=== PATIENT | female | born 1945 | race Caucasian/White ===

== ENCOUNTER 2017-09-19 15:37 | Emergency (ER) | payer MEDICARE, BC ==
[2017-09-19] MEDS ORDERED: Dexamethasone 4 mg/ml Vial ONE (16:07)
== END 2017-09-19 16:17 | disposition home or self-care (01) ==
LOC: BURERS 15:37
DX: J06.9 Acute upper respiratory infection, unspecified (principal); E11.9 Type 2 diabetes mellitus without complications; E78.5 Hyperlipidemia, unspecified; I10 Essential (primary) hypertension; F17.210 Nicotine dependence, cigarettes, uncomplicated; Z79.899 Other long term (current) drug therapy; Z79.82 Long term (current) use of aspirin
CPT/HCPCS: 99406; J1100

== ENCOUNTER 2018-10-22 13:51 | Emergency (ER) | payer MEDICARE, BC ==
[2018-10-22] MEDS ORDERED: predniSONE 20 MG TAB ONE (14:05)
--- NOTE | 2018-10-22 19:40 | RAD ---
CHEST TWO VIEWS: 10/22/18 Comparison is made with the 07/17/05 study. The heart is mildly enlarged. There is no clear congestion of the vessels or pleural effusions. The l ungs are mildly hyperexpanded. There is a little prominence of the basilar markings bilaterally, but is difficult to diagnose a definite pneumonia at this time. Degenerative changes are suggested in the left glenohumeral joint. The trachea is midline. IMPRESSION: 1. Mild cardiomegaly without congestive change. 2. Hyperexpanded lungs with prominence of basilar markings. I cannot tell if this is acute and t herefore potentially related to infection, or if this is more chronic in nature. Serial followup film may be helpful. POS: HOME
== END 2018-10-22 14:43 | disposition home or self-care (01) ==
LOC: BURERS 13:51
DX: J06.9 Acute upper respiratory infection, unspecified (principal); E11.9 Type 2 diabetes mellitus without complications; E78.5 Hyperlipidemia, unspecified; I10 Essential (primary) hypertension; F32.9 Major depressive disorder, single episode, unspecified; F17.210 Nicotine dependence, cigarettes, uncomplicated; Z79.82 Long term (current) use of aspirin; Z79.51 Long term (current) use of inhaled steroids; Z79.899 Other long term (current) drug therapy
CPT/HCPCS: 71046; J7620

== ENCOUNTER 2019-06-14 17:04 | Emergency (ER) | payer MEDICARE, BC ==
[2019-06-14] MEDS ORDERED: Fentanyl 100 MCG/2 ML VIAL ONE (17:37)
[2019-06-14] MEDS ORDERED: Ondansetron PF 4 MG/2 ML Vial ONE (17:38)
--- NOTE | 2019-06-14 17:54 | RAD ---
RADIOGRAPH CHEST 1 VIEW: DATE: 06/14/2019 TIME: 5:37 PM HISTORY: 73-year-old female with cough. COMPARISON: 10/22/2018 FINDINGS: There is increased attenuation at the right lower lung zone without silhouetting of the right hemidia phragm or right cardiac border. This appears worse than on the prior study. It is uncertain whether this is entirely due to body habitus and overlying soft tissues, or whether there is an infiltrate in the right lower lobe. Retrocardiac portion of left lower lobe is also poorly visualized. Upper lung zones are grossly clear. Magnification of the cardiac shadow due to body habitus. No pneumothora x or pulmonary edema. IMPRESSION: Region of increased density at right lower lung zone. Uncertain whether this is an acute infiltrate ( pneumonia) or entirely artifact due to body habitus and overlying soft tissues. Pneumonia is slightly favored. Follow-up is recommended.
[2019-06-14 18:30] LABS: ALT (SGPT) 17 U/L (8-55); AST (SGOT) 20 U/L (5-34); Albumin 4.2 g/dL (3.4-4.8); Alkaline Phosphatase 80 U/L (40-110); Anion Gap 16 mmol/L (10-20); BUN (Urea Nitrogen) 10 mg/dL (9.8-20.1); Bilirubin, Total 1.4 mg/dL (0.2-1.2); Calc. Creatinine Clearance 0 mL/min (70-130); Calcium 9.6 mg/dL (7.8-10.44); Carbon Dioxide 25 mmol/L (23-31); Chloride 99 mmol/L (98-107); Estimated GFR-MDRD 67; Glucose 134 mg/dL (83-110); Lipase 21 U/L (8-78); Potassium 3.8 mmol/L (3.5-5.1); Protein, Total 7.2 g/dL (6.0-8.3); Sodium 136 mmol/L (136-145)
[2019-06-14 18:41] LABS: #Basophils 0.1 thou/uL (0.0-0.2); #Lymphocytes 1.1 thou/uL (1.20-3.40); #Monocytes 0.6 thou/uL (0.11-0.59); #Neutrophils 10.9 thou/uL (1.40-6.50); %Basophils 0.5 % (0.0-1.0); %Lymphocytes 8.9 % (21.0-51.0); %Monocytes 4.7 % (0.0-10.0); %Neutrophils 85.9 % (42.0-75.0); Elliptocytes SLIGHT = 2-5 cells (100X) (0-1/hpf); Hemoglobin 14.9 g/dL (12.0-16.0); Hypochromia MODERATE=16-30 cells (100X) (0-5/hpf); Large Platelets MODERATE; Lymphocytes 8 % (21-51); MDiff Complete? YES; Mean Corpuscular Volume 63.8 fL (78.0-98.0); Mean Platelet Volume 10.8 fL (7.4-10.4); Microcytosis MODERATE=15-30 cells (100X) (0-5/hpf); Monocytes 6 % (0-10); Neutrophil 86 % (42-75); Platelet Count 461 thou/uL (130-400); Polychromasia SLIGHT = 2-3 cells (100X) (0-2/hpf); RBC Distribution Width 19.1 % (11.5-14.5); Red Blood Cell (RBC) Count 8.06 mill/uL (4.20-5.40); Reflex for Review?? YES; White Blood Cell (WBC) Count 12.7 thou/uL (4.8-10.8)
[2019-06-14 18:45] LABS: Mean Corpuscular HGB CONC 29.6 g/dL (32.0-36.0)
[2019-06-14] MEDS ORDERED: cefTRIAXone\\ROCEPHIN 2 GM VIAL ONE (19:17)
[2019-06-14] MEDS ORDERED: Azithromycin 250 MG TAB ONE (19:17)
[2019-06-14 19:38] LABS: Bilirubin Small (Negative); Blood, Urine Negative (Negative); Clarity Cloudy (Clear); Glucose, Urine (Dipstick) Negative (Negative); Leukocyte Trace (Negative); Nitrite Negative (Negative); Protein, Urine (Dipstick) 30 mg/dL (Neg-Trace)
[2019-06-14 19:46] LABS: Bacteria/HPF 1+ HPF (None Seen); Broad Cast None Seen LPF (None Seen); Calcium Oxalate Crystals None Seen HPF (None Seen); Cellular Cast None Seen LPF (None Seen); Epithelial Cast None Seen LPF (None Seen); Fatty Cast None Seen LPF (None Seen); Mucous/LPF None Seen LPF (<2+); Other Casts None Seen LPF (None Seen); Oval Fat Bodies/HPF None Seen HPF (None Seen); RBC/HPF None Seen HPF (0-3); Red Blood Cell Cast None Seen LPF (None Seen); Renal Epithelial None Seen HPF (None Seen); Sperm/HPF None Seen HPF (None Seen); Transitional Epithelial None Seen HPF (None Seen); Trichomonas/HPF None Seen HPF (None Seen); Triple Phosphate Crystal None Seen HPF (None Seen); Unclassified Crystals None Seen HPF (None Seen); WBC/HPF 0-3 HPF (0-3); Waxy Cast None Seen LPF (None Seen); White Blood Cell Cast None Seen LPF (None Seen); Yeast-Budding None Seen HPF (None Seen); Yeast-Hyphae None Seen HPF (None Seen)
[2019-06-14] MEDS ORDERED: Dexamethasone 4 MG TAB ONE (19:49)
== END 2019-06-14 19:47 | disposition home or self-care (01) ==
LOC: BURERS 17:04
DX: J18.1 Lobar pneumonia, unspecified organism (principal); M19.90 Unspecified osteoarthritis, unspecified site; E11.9 Type 2 diabetes mellitus without complications; E78.5 Hyperlipidemia, unspecified; I10 Essential (primary) hypertension; F17.210 Nicotine dependence, cigarettes, uncomplicated; Z79.51 Long term (current) use of inhaled steroids; Z79.899 Other long term (current) drug therapy; Z79.82 Long term (current) use of aspirin
CPT/HCPCS: 71045; 80053; 81003; 81015; 83690; 84484; 85025; 85060; 87040; 87086; 93005; 94640; 94760; 96361; 96374; 96375; J0696; J2405; J3010; J7620; J8540

== ENCOUNTER 2019-12-08 13:08 | Emergency (ER) | payer MEDICARE, BC ==
[2019-12-08 14:17] LABS: Bilirubin Negative (Negative); Blood, Urine Negative (Negative); Clarity Clear (Clear); Glucose, Urine (Dipstick) Negative (Negative); Leukocyte Negative (Negative); Nitrite Negative (Negative); Protein, Urine (Dipstick) Negative (Neg-Trace)
[2019-12-08 14:35] LABS: Hemoglobin 13.4 g/dL (12.0-16.0); Mean Corpuscular HGB CONC 29.6 g/dL (32.0-36.0); Mean Corpuscular Hemoglobin 18.3 pg (27.0-31.0); Mean Corpuscular Volume 61.8 fL (78.0-98.0); Mean Platelet Volume 9.5 fL (7.4-10.4); Platelet Count 390 thou/uL (130-400); RBC Distribution Width 21.7 % (11.5-14.5); Red Blood Cell (RBC) Count Greater than 7.09 mill/uL (4.20-5.40); White Blood Cell (WBC) Count 10.6 thou/uL (4.8-10.8)
[2019-12-08] MEDS ORDERED: Aspirin Chewable 81 MG TAB ONE (14:39)
[2019-12-08 14:49] LABS: #Basophils 0.1 thou/uL (0.0-0.2); #Lymphocytes 1.6 thou/uL (1.20-3.40); #Monocytes 0.7 thou/uL (0.11-0.59); #Neutrophils 8.2 thou/uL (1.40-6.50); %Basophils 0.8 % (0.0-1.0); %Lymphocytes 14.9 % (21.0-51.0); %Monocytes 6.7 % (0.0-10.0); %Neutrophils 77.6 % (42.0-75.0); Band 9 % (5-11); Hypochromia MODERATE=16-30 cells (100X) (0-5/hpf); Large Platelets SLIGHT; Lymphocytes 10 % (21-51); MDiff Complete? YES; Macrocytosis SLIGHT = 6-15 cells (100X) (0-5/hpf); Microcytosis MODERATE=15-30 cells (100X) (0-5/hpf); Monocytes 3 % (0-10); Neutrophil 77 % (42-75); Nucleated RBC 1 % (0); Reactive Lymphocytes 1 % (0-10)
[2019-12-08 14:54] LABS: Bicarbonate (HCO3v) 24.7 mmol/L (22.0-28.0); CO2 Tension (PvCO2) 39.6 mmHg (40.0-50.0); vO2 Saturation-calc 86.6 % (60.0-85.0)
[2019-12-08 14:55] LABS: Calcium, Ionized 1.07 mmol/L (See Comments:); Chloride 94 mmol/L (98-107); Hemoglobin - Calc 17.4 g/dL (12.0-16.0); Potassium 3.2 mmol/L (3.5-5.1); Sodium 131 mmol/L (138-145); T. Carbon Dioxide 25.9 mmol/L (22.0-28.0)
[2019-12-08] MEDS ORDERED: Furosemide 40 MG/4 ML VIAL ONE ×2 (14:59→15:12)
[2019-12-08] MEDS ORDERED: Nitroglycerin 2% Ointment 1 INCH/1 GM Packet ONE (14:59)
--- NOTE | 2019-12-08 16:13 | CT ---
CT OF THE BRAIN WITHOUT CONTRAST: Date: 12-08-2019 FINDINGS: The ventricles are normal in size for age and atrophy. There was no sign of acute stroke, mass, or ed hillary. The basal ganglia are calcified. The skull appears intact. The visible paranasal sinuses are clovis ar. IMPRESSION: No acute intracranial findings. Preliminary report called to Mindy in ER at 1412 on 12-08-2019. POS: HOME
--- NOTE | 2019-12-08 16:18 | RAD ---
PORTABLE CHEST: Date: 12-08-2019 An AP portable film at 1410 is compared to a 06-19-19 study. FINDINGS: A definite lobar infiltrate was not seen, though it is very difficult to assess the left lung base in this patient. Additionally, some of the lung markings around the left hilum are minimally prominent. If the patient were to have significant symptoms of respiratory disease, then she may need a follow up PA and lateral view to better assess the lungs. There are no findings of congestive failure. IMPRESSION: Slightly lower sensitivity study showing cardiomegaly. Equivocal prominence of left parahilar marking s, but the finding is marginal at best. Consider follow up if needed. POS: HOME
--- NOTE | 2019-12-08 16:24 | RAD ---
RIGHT WRIST THREE VIEWS: Date: 12-08-2019 FINDINGS: No fracture or area of bony destruction is seen. The joints were unremarkable for age. No causes for significant pain were found. IMPRESSION: No acute finding. POS: HOME
[2019-12-08] MEDS ORDERED: Acetaminophen 325 MG TAB PO PRN (17:31)
== END 2019-12-08 16:23 | disposition short-term general hospital (02) ==
LOC: BURERS 13:08
DX: I11.0 Hypertensive heart disease with heart failure (principal); I50.9 Heart failure, unspecified; R41.82 Altered mental status, unspecified; E11.9 Type 2 diabetes mellitus without complications; E78.5 Hyperlipidemia, unspecified; E78.00 Pure hypercholesterolemia, unspecified; M19.90 Unspecified osteoarthritis, unspecified site; F32.9 Major depressive disorder, single episode, unspecified; F17.210 Nicotine dependence, cigarettes, uncomplicated; E87.1 Hypo-osmolality and hyponatremia; Z79.899 Other long term (current) drug therapy; Z79.84 Long term (current) use of oral hypoglycemic drugs; Z79.82 Long term (current) use of aspirin
CPT/HCPCS: 51701; 70450; 71045; 81003; 82330; 82803; 83880; 84484; 85025; 93005; 96374; A4353; J1940

== ENCOUNTER 2020-10-26 17:55 | Inpatient (IN) | payer MEDICARE, BC ==
[2020-10-26] MEDS ORDERED: Ursodiol 300 MG CAP PO SCH (21:00)
[2020-10-26] MEDS: Nicotine 14 MG PATCH TOP SCH (22:52)
[2020-10-26] MEDS: ALPRAZolam 0.5 MG TAB PO SCH (22:54)
[2020-10-26] MEDS: PARoxetine 20 MG TAB PO SCH (22:54)
[2020-10-26] MEDS: Fenofibrate Nanocrystallized 145 MG TAB PO SCH (22:54)
[2020-10-27] MEDS: Ursodiol 300 MG CAP PO SCH ×2 (08:30→18:34)
[2020-10-27] MEDS: Cholecalciferol 1,000 UNITS (25 MCG) TAB PO SCH (08:31)
[2020-10-27] MEDS: ALPRAZolam 0.5 MG TAB PO SCH ×2 (08:32→20:31)
[2020-10-27] MEDS: Amlodipine 5 MG TAB PO SCH (08:32)
[2020-10-27] MEDS: Furosemide 40 MG TAB PO SCH (08:32)
[2020-10-27] MEDS: Aspirin 81 mg Enteric Coated Tablet PO SCH (08:34)
[2020-10-27] MEDS: Spironolactone 25 MG TAB PO SCH (08:34)
[2020-10-27] MEDS: PARoxetine 20 MG TAB PO SCH (20:30)
[2020-10-27] MEDS: Fenofibrate Nanocrystallized 145 MG TAB PO SCH (20:30)
[2020-10-27] MEDS: Nicotine 14 MG PATCH TOP SCH (20:31)
[2020-10-28] MEDS: Ursodiol 300 MG CAP PO SCH ×2 (08:21→17:58)
[2020-10-28] MEDS: Amlodipine 5 MG TAB PO SCH (08:22)
[2020-10-28] MEDS: Aspirin 81 mg Enteric Coated Tablet PO SCH (08:22)
[2020-10-28] MEDS: Cholecalciferol 1,000 UNITS (25 MCG) TAB PO SCH (08:22)
[2020-10-28] MEDS: ALPRAZolam 0.5 MG TAB PO SCH ×2 (08:22→20:07)
[2020-10-28] MEDS: Spironolactone 25 MG TAB PO SCH (08:23)
[2020-10-28] MEDS: Furosemide 40 MG TAB PO SCH (08:23)
[2020-10-28] MEDS: Nicotine 14 MG PATCH TOP SCH (20:07)
[2020-10-28] MEDS: PARoxetine 20 MG TAB PO SCH (20:07)
[2020-10-28] MEDS: Fenofibrate Nanocrystallized 145 MG TAB PO SCH (20:08)
[2020-10-29] MEDS: Aspirin 81 mg Enteric Coated Tablet PO SCH (08:32)
[2020-10-29] MEDS: Amlodipine 5 MG TAB PO SCH (08:33)
[2020-10-29] MEDS: Spironolactone 25 MG TAB PO SCH (08:33)
[2020-10-29] MEDS: Cholecalciferol 1,000 UNITS (25 MCG) TAB PO SCH (08:33)
[2020-10-29] MEDS: ALPRAZolam 0.5 MG TAB PO SCH ×2 (08:33→20:20)
[2020-10-29] MEDS: Furosemide 40 MG TAB PO SCH (08:33)
[2020-10-29] MEDS: Ursodiol 300 MG CAP PO SCH ×2 (08:34→17:57)
[2020-10-29] MEDS: Nicotine 14 MG PATCH TOP SCH ×2 (14:38→20:20)
[2020-10-29] MEDS: PARoxetine 20 MG TAB PO SCH (20:20)
[2020-10-29] MEDS: Fenofibrate Nanocrystallized 145 MG TAB PO SCH (20:21)
[2020-10-30] MEDS: Furosemide 40 MG TAB PO SCH (09:17)
[2020-10-30] MEDS: Amlodipine 5 MG TAB PO SCH (09:17)
[2020-10-30] MEDS: Ursodiol 300 MG CAP PO SCH ×2 (09:21→17:03)
[2020-10-30] MEDS: Cholecalciferol 1,000 UNITS (25 MCG) TAB PO SCH (09:21)
[2020-10-30] MEDS: ALPRAZolam 0.5 MG TAB PO SCH ×2 (09:21→22:08)
[2020-10-30] MEDS: Aspirin 81 mg Enteric Coated Tablet PO SCH (09:21)
[2020-10-30] MEDS: Spironolactone 25 MG TAB PO SCH (09:21)
[2020-10-30] MEDS: Fenofibrate Nanocrystallized 145 MG TAB PO SCH (22:00)
[2020-10-30] MEDS: PARoxetine 20 MG TAB PO SCH (22:00)
[2020-10-31] MEDS: Amlodipine 5 MG TAB PO SCH (08:20)
[2020-10-31] MEDS: Spironolactone 25 MG TAB PO SCH (08:20)
[2020-10-31] MEDS: Aspirin 81 mg Enteric Coated Tablet PO SCH (08:21)
[2020-10-31] MEDS: Furosemide 40 MG TAB PO SCH (08:21)
[2020-10-31] MEDS: Cholecalciferol 1,000 UNITS (25 MCG) TAB PO SCH (08:21)
[2020-10-31] MEDS: Ursodiol 300 MG CAP PO SCH ×2 (08:21→16:34)
[2020-10-31] MEDS: ALPRAZolam 0.5 MG TAB PO SCH ×2 (08:21→20:13)
[2020-10-31] MEDS: Fenofibrate Nanocrystallized 145 MG TAB PO SCH (20:13)
[2020-10-31] MEDS: Nicotine 14 MG PATCH TOP SCH (20:14)
[2020-10-31] MEDS: PARoxetine 20 MG TAB PO SCH (20:14)
[2020-11-01 06:01] LABS: Bilirubin, Total 4.8 mg/dL (0.2-1.2)
[2020-11-01] MEDS: Furosemide 40 MG TAB PO SCH (08:34)
[2020-11-01] MEDS: Spironolactone 25 MG TAB PO SCH (08:34)
[2020-11-01] MEDS: Cholecalciferol 1,000 UNITS (25 MCG) TAB PO SCH (08:34)
[2020-11-01] MEDS: Ursodiol 300 MG CAP PO SCH ×2 (08:34→16:57)
[2020-11-01] MEDS: Aspirin 81 mg Enteric Coated Tablet PO SCH (08:35)
[2020-11-01] MEDS: ALPRAZolam 0.5 MG TAB PO SCH ×2 (08:35→20:29)
[2020-11-01] MEDS: Amlodipine 5 MG TAB PO SCH (08:36)
[2020-11-01] MEDS: PARoxetine 20 MG TAB PO SCH (20:28)
[2020-11-01] MEDS: Fenofibrate Nanocrystallized 145 MG TAB PO SCH (20:28)
[2020-11-01] MEDS: Nicotine 14 MG PATCH TOP SCH (20:29)
[2020-11-02] MEDS: Spironolactone 25 MG TAB PO SCH (08:44)
[2020-11-02] MEDS: Cholecalciferol 1,000 UNITS (25 MCG) TAB PO SCH (08:44)
[2020-11-02] MEDS: Ursodiol 300 MG CAP PO SCH ×2 (08:45→16:48)
[2020-11-02] MEDS: Amlodipine 5 MG TAB PO SCH (08:45)
[2020-11-02] MEDS: ALPRAZolam 0.5 MG TAB PO SCH ×2 (08:46→20:33)
[2020-11-02] MEDS: Aspirin 81 mg Enteric Coated Tablet PO SCH (08:46)
[2020-11-02] MEDS: Furosemide 40 MG TAB PO SCH (08:46)
[2020-11-02 10:09] LABS: Anion Gap 15 mmol/L (10-20); BUN (Urea Nitrogen) 13 mg/dL (9.8-20.1); Calc. Creatinine Clearance 100 mL/min (70-130); Calcium 9.1 mg/dL (7.8-10.44); Carbon Dioxide 28 mmol/L (23-31); Chloride 101 mmol/L (98-107); Glucose 121 mg/dL (83-110); Potassium 3.2 mmol/L (3.5-5.1); Sodium 141 mmol/L (136-145)
[2020-11-02] MEDS ORDERED: Potassium Chloride 20 MEQ TAB PO SCH (11:00)
[2020-11-02] MEDS: Potassium Chloride 20 MEQ TAB PO SCH (16:48)
[2020-11-02] MEDS: PARoxetine 20 MG TAB PO SCH (20:34)
[2020-11-02] MEDS: Fenofibrate Nanocrystallized 145 MG TAB PO SCH (20:35)
[2020-11-02] MEDS: Nicotine 14 MG PATCH TOP SCH (20:36)
[2020-11-03] MEDS: Ursodiol 300 MG CAP PO SCH ×2 (09:37→16:46)
[2020-11-03] MEDS: Furosemide 40 MG TAB PO SCH (09:38)
[2020-11-03] MEDS: Amlodipine 5 MG TAB PO SCH (09:38)
[2020-11-03] MEDS: Potassium Chloride 20 MEQ TAB PO SCH ×2 (09:38→16:47)
[2020-11-03] MEDS: Aspirin 81 mg Enteric Coated Tablet PO SCH (09:39)
[2020-11-03] MEDS: Cholecalciferol 1,000 UNITS (25 MCG) TAB PO SCH (09:39)
[2020-11-03] MEDS: Spironolactone 25 MG TAB PO SCH (09:40)
[2020-11-03] MEDS: ALPRAZolam 0.5 MG TAB PO SCH ×2 (09:40→20:49)
[2020-11-03 15:56] VITALS: BMI 31.6
[2020-11-03] MEDS: PARoxetine 20 MG TAB PO SCH (20:48)
[2020-11-03] MEDS: Fenofibrate Nanocrystallized 145 MG TAB PO SCH (20:48)
[2020-11-03] MEDS: Nicotine 14 MG PATCH TOP SCH (20:50)
[2020-11-04] MEDS: Potassium Chloride 20 MEQ TAB PO SCH ×2 (09:31→16:52)
[2020-11-04] MEDS: Spironolactone 25 MG TAB PO SCH (09:32)
[2020-11-04] MEDS: Furosemide 40 MG TAB PO SCH (09:32)
[2020-11-04] MEDS: Ursodiol 300 MG CAP PO SCH ×2 (09:32→16:52)
[2020-11-04] MEDS: Aspirin 81 mg Enteric Coated Tablet PO SCH (09:32)
[2020-11-04] MEDS: ALPRAZolam 0.5 MG TAB PO SCH ×2 (09:33→20:29)
[2020-11-04] MEDS: Cholecalciferol 1,000 UNITS (25 MCG) TAB PO SCH (09:33)
[2020-11-04] MEDS: Amlodipine 5 MG TAB PO SCH (09:33)
[2020-11-04] MEDS: PARoxetine 20 MG TAB PO SCH (20:30)
[2020-11-04] MEDS: Fenofibrate Nanocrystallized 145 MG TAB PO SCH (20:30)
[2020-11-04] MEDS: Nicotine 14 MG PATCH TOP SCH (20:47)
[2020-11-05] MEDS: Ursodiol 300 MG CAP PO SCH ×2 (08:52→17:32)
[2020-11-05] MEDS: Furosemide 40 MG TAB PO SCH (08:53)
[2020-11-05] MEDS: Amlodipine 5 MG TAB PO SCH (08:53)
[2020-11-05] MEDS: Aspirin 81 mg Enteric Coated Tablet PO SCH (08:54)
[2020-11-05] MEDS: Spironolactone 25 MG TAB PO SCH (08:54)
[2020-11-05] MEDS: Cholecalciferol 1,000 UNITS (25 MCG) TAB PO SCH (08:54)
[2020-11-05] MEDS: Potassium Chloride 20 MEQ TAB PO SCH ×2 (08:54→17:31)
[2020-11-05] MEDS: ALPRAZolam 0.5 MG TAB PO SCH ×2 (08:55→20:19)
[2020-11-05] MEDS: Fenofibrate Nanocrystallized 145 MG TAB PO SCH (20:20)
[2020-11-05] MEDS: PARoxetine 20 MG TAB PO SCH (20:20)
[2020-11-05] MEDS: Nicotine 14 MG PATCH TOP SCH (20:21)
[2020-11-06] MEDS: Potassium Chloride 20 MEQ TAB PO SCH ×2 (08:59→16:17)
[2020-11-06] MEDS: Amlodipine 5 MG TAB PO SCH (08:59)
[2020-11-06] MEDS: Furosemide 40 MG TAB PO SCH (09:00)
[2020-11-06] MEDS: Spironolactone 25 MG TAB PO SCH (09:00)
[2020-11-06] MEDS: Cholecalciferol 1,000 UNITS (25 MCG) TAB PO SCH (09:00)
[2020-11-06] MEDS: Aspirin 81 mg Enteric Coated Tablet PO SCH (09:00)
[2020-11-06] MEDS: ALPRAZolam 0.5 MG TAB PO SCH ×2 (09:01→19:59)
[2020-11-06] MEDS: Ursodiol 300 MG CAP PO SCH ×2 (09:04→16:17)
[2020-11-06] MEDS: PARoxetine 20 MG TAB PO SCH (19:59)
[2020-11-06] MEDS: Fenofibrate Nanocrystallized 145 MG TAB PO SCH (19:59)
[2020-11-06] MEDS: Nicotine 14 MG PATCH TOP SCH (20:01)
[2020-11-07] MEDS: Amlodipine 5 MG TAB PO SCH (08:45)
[2020-11-07] MEDS: Potassium Chloride 20 MEQ TAB PO SCH ×2 (08:45→17:44)
[2020-11-07] MEDS: ALPRAZolam 0.5 MG TAB PO SCH ×2 (08:46→20:32)
[2020-11-07] MEDS: Spironolactone 25 MG TAB PO SCH (08:46)
[2020-11-07] MEDS: Cholecalciferol 1,000 UNITS (25 MCG) TAB PO SCH (08:46)
[2020-11-07] MEDS: Furosemide 40 MG TAB PO SCH (08:46)
[2020-11-07] MEDS: Aspirin 81 mg Enteric Coated Tablet PO SCH (08:46)
[2020-11-07] MEDS: Ursodiol 300 MG CAP PO SCH ×2 (08:47→17:45)
[2020-11-07] MEDS: PARoxetine 20 MG TAB PO SCH (20:31)
[2020-11-07] MEDS: Fenofibrate Nanocrystallized 145 MG TAB PO SCH (20:31)
[2020-11-07] MEDS: Nicotine 14 MG PATCH TOP SCH (20:35)
[2020-11-08] MEDS ORDERED: Ibuprofen 200 MG TAB PO PRN (02:34)
[2020-11-08] MEDS: Spironolactone 25 MG TAB PO SCH (09:45)
[2020-11-08] MEDS: Furosemide 40 MG TAB PO SCH (09:45)
[2020-11-08] MEDS: Ursodiol 300 MG CAP PO SCH ×2 (09:46→16:42)
[2020-11-08] MEDS: ALPRAZolam 0.5 MG TAB PO SCH ×2 (09:47→21:21)
[2020-11-08] MEDS: Cholecalciferol 1,000 UNITS (25 MCG) TAB PO SCH (09:48)
[2020-11-08] MEDS: Aspirin 81 mg Enteric Coated Tablet PO SCH (09:48)
[2020-11-08] MEDS: Potassium Chloride 20 MEQ TAB PO SCH ×2 (09:48→16:43)
[2020-11-08] MEDS: Amlodipine 5 MG TAB PO SCH (09:49)
[2020-11-08] MEDS: Fenofibrate Nanocrystallized 145 MG TAB PO SCH (21:21)
[2020-11-08] MEDS: PARoxetine 20 MG TAB PO SCH (21:21)
[2020-11-08] MEDS: Nicotine 14 MG PATCH TOP SCH (21:21)
[2020-11-09 05:31] LABS: Anion Gap 17 mmol/L (10-20); BUN (Urea Nitrogen) 17 mg/dL (9.8-20.1); Calc. Creatinine Clearance 82 mL/min (70-130); Calcium 10.2 mg/dL (7.8-10.44); Carbon Dioxide 25 mmol/L (23-31); Chloride 102 mmol/L (98-107); Glucose 93 mg/dL (83-110); Potassium 4.1 mmol/L (3.5-5.1); Sodium 140 mmol/L (136-145)
[2020-11-09] MEDS: Potassium Chloride 20 MEQ TAB PO SCH ×2 (08:30→17:07)
[2020-11-09] MEDS: Furosemide 40 MG TAB PO SCH (08:30)
[2020-11-09] MEDS: Amlodipine 5 MG TAB PO SCH (08:30)
[2020-11-09] MEDS: ALPRAZolam 0.5 MG TAB PO SCH ×2 (08:30→20:31)
[2020-11-09] MEDS: Ursodiol 300 MG CAP PO SCH ×2 (08:30→17:07)
[2020-11-09] MEDS: Spironolactone 25 MG TAB PO SCH (08:31)
[2020-11-09] MEDS: Cholecalciferol 1,000 UNITS (25 MCG) TAB PO SCH (08:31)
[2020-11-09] MEDS: Aspirin 81 mg Enteric Coated Tablet PO SCH (08:31)
[2020-11-09] MEDS: Fenofibrate Nanocrystallized 145 MG TAB PO SCH (20:30)
[2020-11-09] MEDS: PARoxetine 20 MG TAB PO SCH (20:30)
[2020-11-09] MEDS: Nicotine 14 MG PATCH TOP SCH (20:32)
[2020-11-10] MEDS: ALPRAZolam 0.5 MG TAB PO SCH ×2 (08:19→20:37)
[2020-11-10] MEDS: Aspirin 81 mg Enteric Coated Tablet PO SCH (08:20)
[2020-11-10] MEDS: Furosemide 40 MG TAB PO SCH (08:20)
[2020-11-10] MEDS: Cholecalciferol 1,000 UNITS (25 MCG) TAB PO SCH (08:20)
[2020-11-10] MEDS: Amlodipine 5 MG TAB PO SCH (08:21)
[2020-11-10] MEDS: Spironolactone 25 MG TAB PO SCH (08:21)
[2020-11-10] MEDS: Ursodiol 300 MG CAP PO SCH ×2 (08:21→17:25)
[2020-11-10] MEDS: Potassium Chloride 20 MEQ TAB PO SCH ×2 (08:22→17:25)
[2020-11-10] MEDS: Fenofibrate Nanocrystallized 145 MG TAB PO SCH (20:38)
[2020-11-10] MEDS: PARoxetine 20 MG TAB PO SCH (20:38)
[2020-11-10] MEDS: Nicotine 14 MG PATCH TOP SCH (20:40)
[2020-11-11] MEDS: Amlodipine 5 MG TAB PO SCH (08:35)
[2020-11-11] MEDS: Aspirin 81 mg Enteric Coated Tablet PO SCH (08:35)
[2020-11-11] MEDS: Furosemide 40 MG TAB PO SCH (08:36)
[2020-11-11] MEDS: Potassium Chloride 20 MEQ TAB PO SCH ×2 (08:36→16:55)
[2020-11-11] MEDS: Cholecalciferol 1,000 UNITS (25 MCG) TAB PO SCH (08:37)
[2020-11-11] MEDS: ALPRAZolam 0.5 MG TAB PO SCH ×2 (08:37→21:00)
[2020-11-11] MEDS: Ursodiol 300 MG CAP PO SCH ×2 (08:37→16:55)
[2020-11-11] MEDS: Spironolactone 25 MG TAB PO SCH (08:37)
[2020-11-11] MEDS: Fenofibrate Nanocrystallized 145 MG TAB PO SCH (21:00)
[2020-11-11] MEDS: PARoxetine 20 MG TAB PO SCH (21:00)
[2020-11-11] MEDS: Nicotine 14 MG PATCH TOP SCH (21:01)
[2020-11-12] MEDS: Ursodiol 300 MG CAP PO SCH ×2 (08:09→17:03)
[2020-11-12] MEDS: Aspirin 81 mg Enteric Coated Tablet PO SCH (08:09)
[2020-11-12] MEDS: Furosemide 40 MG TAB PO SCH (08:09)
[2020-11-12] MEDS: Amlodipine 5 MG TAB PO SCH (08:09)
[2020-11-12] MEDS: ALPRAZolam 0.5 MG TAB PO SCH ×2 (08:14→20:35)
[2020-11-12] MEDS: Potassium Chloride 20 MEQ TAB PO SCH ×2 (08:15→17:03)
[2020-11-12] MEDS: Spironolactone 25 MG TAB PO SCH (08:15)
[2020-11-12] MEDS: Cholecalciferol 1,000 UNITS (25 MCG) TAB PO SCH (08:15)
[2020-11-12] MEDS: Nicotine 14 MG PATCH TOP SCH (20:35)
[2020-11-12] MEDS: Fenofibrate Nanocrystallized 145 MG TAB PO SCH (20:36)
[2020-11-12] MEDS: PARoxetine 20 MG TAB PO SCH (20:37)
[2020-11-13] MEDS: Potassium Chloride 20 MEQ TAB PO SCH ×2 (07:56→16:55)
[2020-11-13] MEDS: Ursodiol 300 MG CAP PO SCH ×2 (07:57→16:55)
[2020-11-13] MEDS: Furosemide 40 MG TAB PO SCH (07:57)
[2020-11-13] MEDS: Aspirin 81 mg Enteric Coated Tablet PO SCH (07:57)
[2020-11-13] MEDS: Cholecalciferol 1,000 UNITS (25 MCG) TAB PO SCH (07:58)
[2020-11-13] MEDS: ALPRAZolam 0.5 MG TAB PO SCH ×2 (07:58→20:21)
[2020-11-13] MEDS: Spironolactone 25 MG TAB PO SCH (07:58)
[2020-11-13] MEDS: Amlodipine 5 MG TAB PO SCH (08:00)
[2020-11-13] MEDS: PARoxetine 20 MG TAB PO SCH (20:21)
[2020-11-13] MEDS: Nicotine 14 MG PATCH TOP SCH (20:22)
[2020-11-13] MEDS: Fenofibrate Nanocrystallized 145 MG TAB PO SCH (20:22)
[2020-11-14 08:00] LABS: Mean Corpuscular HGB CONC 30.3 g/dL (32.0-36.0); Mean Corpuscular Hemoglobin 21.5 pg (27.0-31.0); Mean Corpuscular Volume 70.9 fL (78.0-98.0); Mean Platelet Volume 10.2 fL (7.4-10.4); Platelet Count 681 thou/uL (130-400); RBC Distribution Width 23.8 % (11.5-14.5); Red Blood Cell (RBC) Count 7.01 mill/uL (4.20-5.40); White Blood Cell (WBC) Count 10.2 thou/uL (4.8-10.8)
[2020-11-14 08:12] LABS: #Basophils 0.1 thou/uL (0.0-0.2); #Lymphocytes 1.8 thou/uL (1.20-3.40); #Monocytes 0.8 thou/uL (0.11-0.59); #Neutrophils 7.5 thou/uL (1.40-6.50); %Basophils 0.8 % (0.0-1.0); %Lymphocytes 17.2 % (21.0-51.0); %Monocytes 8.3 % (0.0-10.0); %Neutrophils 73.7 % (42.0-75.0); Anisocytosis MODERATE=16-30 cells (100X) (0-5/hpf); Eosinophils 1 % (0-10); Giant Platelets SLIGHT; Large Platelets SLIGHT; Lymphocytes 20 % (21-51); MDiff Complete? YES; Microcytosis SLIGHT = 6-15 cells (100X) (0-5/hpf); Monocytes 7 % (0-10); Neutrophil 70 % (42-75); Platelet Morphology Comment Appears Increased; Reactive Lymphocytes 2 % (0-10)
[2020-11-14 08:15] LABS: ALT (SGPT) 21 U/L (8-55); AST (SGOT) 25 U/L (5-34); Alkaline Phosphatase 112 U/L (40-110); Anion Gap 19 mmol/L (10-20); BUN (Urea Nitrogen) 18 mg/dL (9.8-20.1); Bilirubin, Total 3.5 mg/dL (0.2-1.2); Calc. Creatinine Clearance 74 mL/min (70-130); Calcium 10.6 mg/dL (7.8-10.44); Carbon Dioxide 25 mmol/L (23-31); Chloride 97 mmol/L (98-107); Glucose 141 mg/dL (83-110); Potassium 4.5 mmol/L (3.5-5.1); Sodium 136 mmol/L (136-145)
[2020-11-14] MEDS: Aspirin 81 mg Enteric Coated Tablet PO SCH (08:53)
[2020-11-14] MEDS: Ursodiol 300 MG CAP PO SCH ×2 (08:53→16:03)
[2020-11-14] MEDS: Furosemide 40 MG TAB PO SCH (08:54)
[2020-11-14] MEDS: Spironolactone 25 MG TAB PO SCH (08:54)
[2020-11-14] MEDS: ALPRAZolam 0.5 MG TAB PO SCH ×2 (08:54→21:20)
[2020-11-14] MEDS: Potassium Chloride 20 MEQ TAB PO SCH ×2 (08:54→16:04)
[2020-11-14] MEDS: Cholecalciferol 1,000 UNITS (25 MCG) TAB PO SCH (08:54)
[2020-11-14] MEDS: Amlodipine 5 MG TAB PO SCH (08:55)
[2020-11-14] MEDS ORDERED: ALPRAZolam 0.5 MG TAB PO SCH (12:30)
[2020-11-14] MEDS: PARoxetine 20 MG TAB PO SCH (21:19)
[2020-11-14] MEDS: Nicotine 14 MG PATCH TOP SCH (21:20)
[2020-11-14] MEDS: Fenofibrate Nanocrystallized 145 MG TAB PO SCH (21:20)
[2020-11-15] MEDS: Potassium Chloride 20 MEQ TAB PO SCH ×2 (09:27→17:29)
[2020-11-15] MEDS: ALPRAZolam 0.5 MG TAB PO SCH ×2 (09:28→20:56)
[2020-11-15] MEDS: Furosemide 40 MG TAB PO SCH (09:28)
[2020-11-15] MEDS: Aspirin 81 mg Enteric Coated Tablet PO SCH (09:28)
[2020-11-15] MEDS: Ursodiol 300 MG CAP PO SCH ×2 (09:29→17:28)
[2020-11-15] MEDS: Spironolactone 25 MG TAB PO SCH (09:29)
[2020-11-15] MEDS: Cholecalciferol 1,000 UNITS (25 MCG) TAB PO SCH (09:29)
[2020-11-15] MEDS: Amlodipine 5 MG TAB PO SCH (09:33)
[2020-11-15] MEDS: Fenofibrate Nanocrystallized 145 MG TAB PO SCH (20:56)
[2020-11-15] MEDS: PARoxetine 20 MG TAB PO SCH (20:57)
[2020-11-15] MEDS: Nicotine 14 MG PATCH TOP SCH (21:01)
[2020-11-16] MEDS: Aspirin 81 mg Enteric Coated Tablet PO SCH (09:02)
[2020-11-16] MEDS: Ursodiol 300 MG CAP PO SCH ×2 (09:02→17:10)
[2020-11-16] MEDS: Amlodipine 5 MG TAB PO SCH (09:02)
[2020-11-16] MEDS: ALPRAZolam 0.5 MG TAB PO SCH ×2 (09:02→21:20)
[2020-11-16] MEDS: Potassium Chloride 20 MEQ TAB PO SCH ×2 (09:03→17:10)
[2020-11-16] MEDS: Cholecalciferol 1,000 UNITS (25 MCG) TAB PO SCH (09:03)
[2020-11-16] MEDS: Furosemide 40 MG TAB PO SCH (09:03)
[2020-11-16] MEDS: Spironolactone 25 MG TAB PO SCH (09:03)
[2020-11-16] MEDS: Nicotine 14 MG PATCH TOP SCH (21:19)
[2020-11-16] MEDS: PARoxetine 20 MG TAB PO SCH (21:19)
[2020-11-16] MEDS: Fenofibrate Nanocrystallized 145 MG TAB PO SCH (21:20)
[2020-11-17] MEDS: Furosemide 40 MG TAB PO SCH (08:52)
[2020-11-17] MEDS: Amlodipine 5 MG TAB PO SCH (08:53)
[2020-11-17] MEDS: Ursodiol 300 MG CAP PO SCH ×2 (08:54→17:41)
[2020-11-17] MEDS: Spironolactone 25 MG TAB PO SCH (08:54)
[2020-11-17] MEDS: Aspirin 81 mg Enteric Coated Tablet PO SCH (08:56)
[2020-11-17] MEDS: Cholecalciferol 1,000 UNITS (25 MCG) TAB PO SCH (08:56)
[2020-11-17] MEDS: Potassium Chloride 20 MEQ TAB PO SCH ×2 (08:56→17:42)
[2020-11-17] MEDS: ALPRAZolam 0.5 MG TAB PO SCH ×2 (08:57→20:43)
[2020-11-17] MEDS: Nicotine 14 MG PATCH TOP SCH (20:42)
[2020-11-17] MEDS: Fenofibrate Nanocrystallized 145 MG TAB PO SCH (20:42)
[2020-11-17] MEDS: PARoxetine 20 MG TAB PO SCH (20:43)
[2020-11-18] MEDS: Aspirin 81 mg Enteric Coated Tablet PO SCH (08:43)
[2020-11-18] MEDS: Cholecalciferol 1,000 UNITS (25 MCG) TAB PO SCH (08:45)
[2020-11-18] MEDS: Ursodiol 300 MG CAP PO SCH ×2 (08:45→17:12)
[2020-11-18] MEDS: Potassium Chloride 20 MEQ TAB PO SCH ×2 (08:45→17:13)
[2020-11-18] MEDS: ALPRAZolam 0.5 MG TAB PO SCH ×2 (08:46→20:32)
[2020-11-18] MEDS: Amlodipine 5 MG TAB PO SCH (08:47)
[2020-11-18] MEDS: Furosemide 40 MG TAB PO SCH (08:48)
[2020-11-18] MEDS: Spironolactone 25 MG TAB PO SCH (08:48)
[2020-11-18] MEDS: Fenofibrate Nanocrystallized 145 MG TAB PO SCH (20:32)
[2020-11-18] MEDS: PARoxetine 20 MG TAB PO SCH (20:32)
[2020-11-18] MEDS: Nicotine 14 MG PATCH TOP SCH (20:33)
[2020-11-19 06:01] VITALS: BP 143/82; TEMP 97.6
[2020-11-19] MEDS: Cholecalciferol 1,000 UNITS (25 MCG) TAB PO SCH (08:23)
[2020-11-19] MEDS: Potassium Chloride 20 MEQ TAB PO SCH (08:23)
[2020-11-19] MEDS: Aspirin 81 mg Enteric Coated Tablet PO SCH (08:23)
[2020-11-19] MEDS: Ursodiol 300 MG CAP PO SCH (08:24)
[2020-11-19] MEDS: Amlodipine 5 MG TAB PO SCH (08:24)
[2020-11-19] MEDS: Spironolactone 25 MG TAB PO SCH (08:25)
[2020-11-19] MEDS: ALPRAZolam 0.5 MG TAB PO SCH (08:26)
[2020-11-19] MEDS: Furosemide 40 MG TAB PO SCH (08:28)
== END 2020-11-19 13:00 | disposition home health service (06) | DRG 947 ==
LOC: BURMED 17:55
PROVIDERS: ADMIT Family Medicine; ATTEND Family Medicine
DX: R53.81 Other malaise (principal); G92 Toxic encephalopathy; K72.00 Acute and subacute hepatic failure without coma; E11.9 Type 2 diabetes mellitus without complications
CPT/HCPCS: 36415; 36416; 80048; 80053; 82247; 85025

== ENCOUNTER 2021-05-25 15:35 | Emergency (ER) | payer MEDICARE, BC ==
[2021-05-25 16:30] LABS: INR-International Normal Ratio 1.5; Prothrombin Time 18.5 sec (12.0-14.7)
[2021-05-25 16:31] LABS: PTT 37.6 sec (22.9-36.1)
[2021-05-25 16:33] LABS: Hemoglobin 11.4 g/dL (12.0-16.0); Mean Corpuscular HGB CONC 28.7 g/dL (32.0-36.0); Mean Corpuscular Hemoglobin 17.2 pg (27.0-31.0); Mean Corpuscular Volume 59.8 fL (78.0-98.0); Mean Platelet Volume 9.7 fL (7.4-10.4); Platelet Count 473 thou/uL (130-400); RBC Distribution Width 23.3 % (11.5-14.5); Red Blood Cell (RBC) Count 6.63 mill/uL (4.20-5.40); White Blood Cell (WBC) Count 9.3 thou/uL (4.8-10.8)
[2021-05-25 16:38] LABS: ALT (SGPT) 24 U/L (8-55); AST (SGOT) 35 U/L (5-34); Albumin 3.6 g/dL (3.4-4.8); Alkaline Phosphatase 73 U/L (40-110); Anion Gap 17 mmol/L (10-20); BUN (Urea Nitrogen) 21 mg/dL (9.8-20.1); Bilirubin, Total 11.3 mg/dL (0.2-1.2); Calc. Creatinine Clearance 0 mL/min (70-130); Calcium 10.5 mg/dL (7.8-10.44); Carbon Dioxide 22 mmol/L (23-31); Chloride 96 mmol/L (98-107); Globulin 2.9 g/dL (2.4-3.5); Glucose 94 mg/dL (83-110); Magnesium 2.1 mg/dL (1.6-2.6); Potassium 4.1 mmol/L (3.5-5.1); Protein, Total 6.5 g/dL (5.8-8.1); Sodium 131 mmol/L (136-145)
[2021-05-25 16:44] LABS: Band 14 % (5-11); Basophilic Stippling SLIGHT = 1-2 cells (100X) (None Seen); Elliptocytes SLIGHT = 2-5 cells (100X) (0-1/hpf); Hypochromia MARKED = >30 cells (100X) (0-5/hpf); Large Platelets SLIGHT; Lymphocytes 2 % (21-51); MDiff Complete? YES; Macrocytosis MODERATE=16-30 cells (100X) (0-5/hpf); Metamyelocyte 2 % (0-0); Microcytosis SLIGHT = 6-15 cells (100X) (0-5/hpf); Monocytes 5 % (0-10); Myelocyte 1 % (0-0); Neutrophil 72 % (42-75); Nucleated RBC 1 % (0); Reactive Lymphocytes 4 % (0-10); Reflex for Review?? YES; Target Cells MODERATE= 6-15 cells (100X) (0-1/hpf)
[2021-05-25] MEDS ORDERED: Furosemide 40 MG/4 ML VIAL ONE (17:08)
[2021-05-25 17:26] LABS: SARS-CoV-2 NAA Rapid Test Not Detected (NotDetected)
== END 2021-05-25 18:47 | disposition short-term general hospital (02) ==
LOC: BURERS 15:35
DX: I11.0 Hypertensive heart disease with heart failure (principal); I50.9 Heart failure, unspecified; E80.6 Other disorders of bilirubin metabolism; Z20.822 Contact with and (suspected) exposure to COVID-19; E11.9 Type 2 diabetes mellitus without complications; E78.5 Hyperlipidemia, unspecified; E78.00 Pure hypercholesterolemia, unspecified; M19.90 Unspecified osteoarthritis, unspecified site; M48.00 Spinal stenosis, site unspecified; Z85.828 Personal history of other malignant neoplasm of skin; Z79.82 Long term (current) use of aspirin; Z79.899 Other long term (current) drug therapy
CPT/HCPCS: 71045; 80053; 83605; 83735; 83880; 84484; 85025; 85060; 85610; 85730; 93005; 94760; 96374; J1940; U0002